=== PATIENT | male | born 1975 | race Caucasian/White ===

== ENCOUNTER 2017-01-29 09:14 | Day surgery (SDC) | payer OTHER ==
[2017-01-29] MEDS ORDERED: ceFAZolin 2 GM/50 ML 50 ML IV ONE (09:36)
[2017-01-29] MEDS ORDERED: ACETAMINOPHEN 1,000 MG/100 ML 100 ML IV ONE (09:37)
[2017-01-29] MEDS ORDERED: LACTATED RINGERS 1,000 ML IV ONE (09:40)
[2017-01-29] MEDS ORDERED: PROPOFOL 200 MG/20 ML VIAL IVP ONE (11:30)
[2017-01-29] MEDS ORDERED: LIDOCAINE-PF 2% 10 ML AMP SUBQ ONE (11:30)
[2017-01-29] MEDS ORDERED: MIDAZOLAM 2 MG/2 ML VIAL IVP ONE (11:30)
[2017-01-29] MEDS ORDERED: fentaNYL 100 MCG/2 ML VIAL IVP ONE (11:30)
[2017-01-29] MEDS ORDERED: DEXAMETHASONE 4 MG/ML VIAL IVP ONE (11:30)
[2017-01-29] MEDS ORDERED: KETOROLAC 30 MG/ML VIAL IVP ONE (11:30)
[2017-01-29] MEDS ORDERED: ONDANSETRON 4 MG/2 ML VIAL IVP ONE (11:30)
[2017-01-29] MEDS ORDERED: BUPIVACAINE 0.25% PF 30 ML VIAL SUBQ ONE ×2 (11:39→11:58)
[2017-01-29 13:08] VITALS: BP 102/65
--- NOTE | 2017-02-01 09:08 | OPERATIVE REPORT ---
DATE OF SURGERY: 01/29/2017 00:00:00 [facility] MEDICAL RECORD#: [id number]. PREOPERATIVE DIAGNOSIS: Right carpal tunnel syndrome. POSTOPERATIVE DIAGNOSIS: Right carpal tunnel syndrome. OPERATIONS PERFORMED: Open right carpal tunnel release. PRIMARY SURGEON: Danielle Butler MD CDL A DRIVER SURGEON: Rober Dodd MD ANESTHESIA PROVIDER: Eddy Gray CRNA CIRCULATING NURSE: Jan Cm RN MEDICAL PROFESSIONALS: Juancarlos Rosario. ANESTHESIA: General via LMA. IV FLUIDS: 1200 mL lactated Ringer's. ESTIMATED BLOOD LOSS: 1 mL. ANTIBIOTICS: Ancef 2 grams IV. TOURNIQUET: To right arm at 200 mmHg for 21 minutes. IMPLANTS: None. SPECIMENS: None. COMPLICATIONS: None. INDICATIONS: This is a 41-year-old male with a history of numbness and tingling in his bilateral hand s that began in 05/2016. He had EMG and nerve conduction study tests done showing mild bilateral medi an nerve lesions at the wrist. Treatment options including risks, benefits, indications, and expectat ions were discussed with the patient. Risks of surgery to include, but not limited to infection, blee ding, damage to neurovascular structures, need for additional surgery, pain, wrist stiffness, deep ve in thrombosis, pulmonary embolism, loss of limb, and loss of life were discussed with the patient. Al l questions were answered, the patient elected to proceed with surgery, and informed consent was obta ined. DESCRIPTION OF PROCEDURE: The patient was met in the preoperative hold area on the morning of surgery , where we confirmed that we had the correct patient, planned to do the correct procedure, and had th e correct extremity which was the right upper extremity identified. Prior to the patient receiving an y medications, the operative extremity was initialed by the surgeon. The patient was then brought [facility] to the operating room in stable condition and placed supine on the operating room table. All bony p rominences were well-padded, and sequential compression devices were placed on the bilateral lower ex tremities. General anesthesia was then induced without complication, and an LMA was placed. The right upper extremity was then prepped and draped in the usual sterile fashion. After final draping, addit ional ChloraPrep was utilized on the operative site; 3 minutes were allowed to elapse to enable the C hloraPrep to dry. We held a surgical time-out, where we confirmed that we had the correct patient, pl anned to do the correct procedure, and had the correct extremity which was the right upper extremity identified. We also confirmed that the patient received preoperative antibiotics, that all necessary gear was in the room and confirmed sterile, and that no members of the operative team had any concern . We began by exsanguinating the right upper extremity and inflating the tourniquet to 200 mmHg. We the n made an incision over the carpal tunnel on the volar wrist. After sharply incising the skin, we uti lized electrocautery to dissect through the subcuticular layer. We identified the palmar fascia and s janes incised this utilizing a new knife blade. We then identified the transverse carpal ligament. W amanda made a small ariela in this utilizing the knife. We then passed a [place] underneath this and then cut down on top of the [place] to open the transverse carpal ligament proximally and distally. Proximally, the very last part of the transverse carpal ligament was cut utilizing tenotomies. We identified the median nerve within the carpal tunnel, which was without gross abnormalities. We then thoroughly irri gated the wound. We then closed the skin utilizing 4-0 nylon in a horizontal mattress fashion. We then injected 10 mL of 0.25% bupivacaine about the incision for postoperative analgesia. The wound was then dressed with sterile Xeroform, plain gauze, and Webril. We deflated the tourniquet after 21 minutes. The patient w as then placed into a volar resting splint. All sponge counts and needle counts were correct at the conclusion of the case. The patient was awake fide from general anesthesia without complication and taken to the PACU in stable condition. POSTOPERATIVE PLAN: The patient will be seen back in the clinic in 10 days, at which time we will rem ove the splint and do a wound check. He will begin range of motion at that time. No soaking his wound for 4 weeks. JOB #: [id number] EXT JOB #:[id number]
== END 2017-01-29 09:15 | disposition home or self-care (01) ==
LOC: SDS 09:14
PROVIDERS: ATTEND Orthopaedic Surgery
PROC: 01N50ZZ Release Median Nerve, Open Approach (ICD-10-PCS; principal; 2017-01-29 10:30)
DX: G56.01 Carpal tunnel syndrome, right upper limb (principal)
CPT/HCPCS: 64721; J0131; J0690; J7120

== ENCOUNTER 2017-04-19 14:15 | Outpatient (CLI) | payer OTHER | END 2017-04-19 14:16 | disposition home or self-care (01) | LOC: SC 14:15 | PROVIDERS: ATTEND Internal Medicine Pulmonary Disease | DX: R20.2 Paresthesia of skin (principal) | CPT/HCPCS: 99203; 99212 ==

== ENCOUNTER 2017-04-27 20:17 | Outpatient (CLI) | payer OTHER | END 2017-04-27 20:18 | disposition home or self-care (01) | LOC: SC 20:17 | PROVIDERS: ATTEND Internal Medicine Pulmonary Disease | DX: G47.33 Obstructive sleep apnea (adult) (pediatric) (principal); G47.61 Periodic limb movement disorder | CPT/HCPCS: 95810 ==

== ENCOUNTER 2017-05-05 10:27 | Outpatient (CLI) | payer OTHER | END 2017-05-05 10:28 | disposition home or self-care (01) | LOC: SC 10:27 | PROVIDERS: ATTEND Nurse Practitioner Family | DX: G47.33 Obstructive sleep apnea (adult) (pediatric) (principal); G47.61 Periodic limb movement disorder | CPT/HCPCS: 99212; 99214 ==

== ENCOUNTER 2017-05-07 06:03 | Day surgery (SDC) | payer OTHER ==
[2017-05-07] MEDS ORDERED: LACTATED RINGERS 1,000 ML IV ONE ×3 (06:38→08:46)
[2017-05-07] MEDS ORDERED: ACETAMINOPHEN 1,000 MG/100 ML 100 ML IV ONE (06:39)
[2017-05-07] MEDS ORDERED: ceFAZolin 2 GM/50 ML 2 GM/50 ML BAG IV ONE (06:39)
[2017-05-07] MEDS ORDERED: fentaNYL 100 MCG/2 ML VIAL IVP ONE (07:30)
[2017-05-07] MEDS ORDERED: LIDOCAINE-MPF 2% 5 ML VIAL IM ONE (07:30)
[2017-05-07] MEDS ORDERED: PROPOFOL 200 MG/20 ML VIAL IVP ONE (07:30)
[2017-05-07] MEDS ORDERED: DEXAMETHASONE 4 MG/ML VIAL IVP ONE (07:30)
[2017-05-07] MEDS ORDERED: MIDAZOLAM 2 MG/2 ML VIAL IVP ONE (07:30)
[2017-05-07] MEDS ORDERED: ONDANSETRON 4 MG/2 ML VIAL IVP ONE (07:30)
[2017-05-07] MEDS ORDERED: BUPIVACAINE 0.25% PF 30 ML VIAL SUBQ ONE ×2 (07:38→08:18)
[2017-05-07 09:08] VITALS: BP 117/76
--- NOTE | 2017-05-10 13:21 | OPERATIVE REPORT ---
DATE: 05/05/2017 ID #: [id number] PREOPERATIVE DIAGNOSIS: Left carpal tunnel syndrome. POSTOPERATIVE DIAGNOSIS: Left carpal tunnel syndrome. OPERATION PERFORMED: Left open carpal tunnel release. PRIMARY SURGEON: Danielle Butler MD ANESTHESIA PROVIDER: Lizeth Nelson CRNA CIRCULATING NURSE 1. Vilma Tucker RN. 2. Gail York. BROADCAST MAINTENANCE ENGINEER: Tianna Ventura RN, BSN. ANESTHESIA: General via LMA. IV FLUIDS: 800 mL lactated Ringer's. ESTIMATED BLOOD LOSS: 1 mL ANTIBIOTICS: Ancef 2 g IV. TOURNIQUET: Left arm at 200 mmHg for 28 minutes. SPECIMENS: None. COMPLICATIONS: None. IMPLANTS: None. INDICATIONS: This is a 42-year-old right-hand dominant male who has had numbness and tingling in his left hand since May 2016. The risks, benefits, indications, expectations, and treatment options were discussed with the patient to include the risks of surgery including risk of infection, bleeding, damage to neurovascular structures to include the median nerve, damage to flexor tendons of the hand, need for additional surgery, pain, wrist stiffness, deep vein thrombosis, pulmonary embolus, loss of limb, and loss of life. All questions were answered, the patient elected to proceed with surgery, and informed consent was obtained. DESCRIPTION OF PROCEDURE: The patient was met in the preoperative hold area on the day of surgery, where we confirmed that we had the correct patient, planned to do the correct procedure, and had the correct extremity, which was the left upper extremity identified. Prior to the patient receiving any medications, the operative extremity was initialed by the surgeon. The patient was then brought back to the operating room in stable condition and placed supine on the operating room table. All bony prominences were well padded, and sequential compressive devices were placed on the bilateral lower extremities. General anesthesia was induced without complication, and an LMA was placed. The left upper extremity was then prepped and draped in the usual sterile fashion. After a final draping, additional ChloraPrep was utilized on the operative site. Three minutes were allowed to elapse to enable the ChloraPrep to dry. We held a surgical timeout, where we confirmed that we had the correct patient, planned to do the correct procedure, and had the correct extremity, which was left upper extremity identified. We also confirmed that all necessary gear was in the room and confirmed sterile, and that patient received preoperative antibiotics, and that no members of the operative team had any concerns. I began by exsanguinating the left upper extremity and inflating the tourniquet to 200 mmHg. We then made an incision over the volar aspect of the carpal tunnel in line with the radial border over the ring finger, though I altered the incision slightly to follow the natural hand crease. After sharply incising the skin, we then utilized bipolar cautery to dissect through the subcuticular layer. I then identified the palmar fascia and sharply incised this. I then identified a branch of the median nerve that had taken off prior to the transverse carpal ligament. We thus retracted this and continued our dissection of the transverse carpal ligament, which we sharply incised. Once we were fully through the transverse carpal ligament, I placed a [place] underneath the transverse carpal ligament and cut down onto this. The transverse carpal ligament was released fully proximally and distally, and I insured that a [place] would easily pass on both ends. The wound was then thoroughly irrigated. The skin was closed utilizing 3-0 nylon in a horizontal mattress fashion; 5 mL of 0.25% Marcaine was then injected about the incision for postoperative analgesia. The wound was then dressed with sterile Xeroform, plain gauze, and Webril. The patient was then placed into a volar resting splint. All sponge counts and needle counts were correct at the conclusion of the case. The patient was awakened from general anesthesia without complication and taken to the PACU in stable condition. POSTOPERATIVE PLAN: The patient will remain in his splint until he is seen back for his first postoperative visit in 10-14 days, at which time we will remove the sutures and begin him with early therapy. TD: 05/08/2017 16:49 YESSICA
== END 2017-05-07 06:04 | disposition home or self-care (01) ==
LOC: SDS 06:03
PROVIDERS: ATTEND Orthopaedic Surgery
PROC: 01N50ZZ Release Median Nerve, Open Approach (ICD-10-PCS; principal; 2017-05-07 07:30)
DX: G56.02 Carpal tunnel syndrome, left upper limb (principal)
CPT/HCPCS: 64721; J0131; J0690; J7120

== ENCOUNTER 2017-06-15 09:08 | Outpatient (CLI) | payer OTHER | END 2017-06-15 09:09 | disposition home or self-care (01) | LOC: SC 09:08 | PROVIDERS: ATTEND Nurse Practitioner Family | DX: G47.33 Obstructive sleep apnea (adult) (pediatric) (principal) | CPT/HCPCS: 99212; 99214 ==

== ENCOUNTER 2017-07-08 11:13 | Outpatient (CLI) | payer OTHER | END 2017-07-08 11:14 | disposition home or self-care (01) | LOC: SC 11:13 | PROVIDERS: ATTEND Nurse Practitioner Family | DX: G47.33 Obstructive sleep apnea (adult) (pediatric) (principal) | CPT/HCPCS: 99212; 99214 ==

== ENCOUNTER 2017-07-13 22:23 | Outpatient (CLI) | payer OTHER | END 2017-07-13 22:24 | disposition home or self-care (01) | LOC: SC 22:23 | PROVIDERS: ATTEND Internal Medicine Pulmonary Disease | DX: G47.33 Obstructive sleep apnea (adult) (pediatric) (principal); G47.61 Periodic limb movement disorder | CPT/HCPCS: 95811 ==

== ENCOUNTER 2017-08-05 09:00 | Outpatient (CLI) | payer OTHER | END 2017-08-05 09:01 | disposition home or self-care (01) | LOC: SC 09:00 | PROVIDERS: ATTEND Nurse Practitioner Family | DX: G47.33 Obstructive sleep apnea (adult) (pediatric) (principal) | CPT/HCPCS: 99212; 99214 ==

== ENCOUNTER 2017-11-22 10:00 | Outpatient (CLI) | payer OTHER | END 2017-11-22 10:01 | disposition home or self-care (01) | LOC: SC 10:00 | PROVIDERS: ATTEND Nurse Practitioner Family | DX: G47.33 Obstructive sleep apnea (adult) (pediatric) (principal) | CPT/HCPCS: 99212; 99214 ==

== ENCOUNTER 2018-06-14 10:10 | Outpatient (CLI) | payer OTHER | END 2018-06-14 10:11 | disposition home or self-care (01) | LOC: SC 10:10 | PROVIDERS: ATTEND Nurse Practitioner Family | DX: G47.33 Obstructive sleep apnea (adult) (pediatric) (principal) | CPT/HCPCS: 99212; 99214 ==

== ENCOUNTER 2019-05-22 13:09 | Outpatient (CLI) | payer OTHER ==
[2019-05-22 14:08] VITALS: BP 104/68
--- NOTE | 2019-05-22 14:08 | SLEEP CARE CONSULTATION ---
Information from patient questionnaire entered by Lizeth Reid. I have reviewed and concur with the information entered by Lizeth Reid. This document represents the service I personally performed and the decisions made by me, Shannan Acevedo, RN, MSN, [employer]. History of Present Illness Previous diagnosis: Mild (t), Obstructive Sleep Apnea-Hypopnea Syndrome AHI: 8.8 Reason for follow up: annual (last seen 2019) Equipment type: CPAP Equipment obtained from: [employer] (transferred by [facility] due to change in coverage) Mask style: Full face ([place]) Mask brand: Respironics Backup mask available: Yes Last cushion change: a month ago CPAP Compliance Data - Data Reviewed with Patient Average duration of nightly device use: 5.9 Compliance rate %: 89 (180 days) Current pressure setting (cmH2O): 13 Humidity settin Average residual AHI: 1.9 Average large leak: 5.1 liters per minute Subjective Missed days of use due to: reports: illness Patient concerns: reports: nasal congestion (chronic nasal congestion but does not interfer with CPAp), dry mouth, nose, throat (occasionally). denies: aerophagia, mask discomfort, air blowing in eyes, mask leak noise, condensation in mask/hose, epistaxis Observed to snore while using device: No Current pressure setting perceived as: comfortable On therapy, patient: reports: sleeping better, awakening more refreshed, being more awake and alert during the day, more rested overall. denies: drowsiness while driving Initial [place] Sleepiness Scale score: 6 Current [place] Sleepiness Scale score: 2 Allergies and Home Medications Known drug allergies: No Home medication list reviewed: Yes Allergy and home medication list: [place] as needed. Review of Systems Review of systems same as previous: Yes Physical Exam Blood Pressure: 104/68 Cuff size: long Heart Rate: 72 O2 Saturation: 99 Height: 5 ft 8 in Weight: 192 lb (with boots ) Body Mass Index: 29.2 BMI Classification: Overweight Impression and Plan 1. Obstructive Sleep Apnea-Hypopnea Syndrome, mild , with good treatment compliance and good apnea control. On CPAP therapy, the patient has better sleep quality and is more rested overall. Since he is planning on losing some weight. I discussed how significant weight loss can reduce apnea severity and CPAP pressure requirements. Symptoms to report discussed to reduce CPAP pressure. Patient's apnea severity and rationale for treatment to reduce apnea, improve sleep quality and reduce cardiovascular and cerebrovascular events was reviewed. Since his apnea is primarily supine, if unable to use CPAP, he is to avoid supine sleep. * Continue CPAP pressure at 13 [id number] CPAP pressure to cmH2O * Notify me if snoring with mask or feeling that the pressure is too much or too little * Attempt to lose weight * Call this office if any problems using CPAP * Return for follow up in 1year , or sooner if concerns arise Time Spent with Patient (minutes): 20 minutes I spent 100% of this visit face to face with the patient with greater than 50% of this was spent time counseling the patient and coordination of care.
== END 2019-05-22 13:10 | disposition home or self-care (01) ==
LOC: SC 13:09
PROVIDERS: ATTEND Nurse Practitioner Family
DX: G47.33 Obstructive sleep apnea (adult) (pediatric) (principal)
CPT/HCPCS: 99212; 99213

== ENCOUNTER 2020-02-15 12:38 | Outpatient (CLI) | payer OTHER ==
--- NOTE | 2020-02-15 14:17 | MRI Report ---
PROCEDURE: Lumbar Spine W/O INDICATIONS: LOW BACK PAIN TECHNIQUE: Noncontrast sagittal T1 spin echo and T2 fast echo, sagittal STIR, axial T1 and T2 fast spin echo thr ough the lumbar spine. In cases with scoliosis, additional coronal T2 fast spin echo may be performe d. COMPARISON: None. FINDINGS: Image quality: Excellent. Alignment and Curvature: There is normal bony alignment. In the absence of plain films for compariso n, it is assumed that there are 5 nonrib-bearing lumbar vertebral bodies, and that axial imaging was obtained from L1/L2 through L5/S1. Bone Marrow: Marrow is of normal overall signal. No acute vertebral body compression fractures. Spinal Cord: Conus medullaris terminates at the L1 level. Visualized cord demonstrates normal signa l and size. Paraspinous Soft Tissues: No paravertebral masses. L1-L2: No canal stenosis or foraminal stenosis. L2-L3: No canal stenosis or foraminal stenosis. L3-L4: Mild facet hypertrophy. No canal stenosis or foraminal stenosis. L4-L5: Mild facet hypertrophy. No canal stenosis or foraminal stenosis. L5-S1: There is a moderate-sized focal right posterior disc protrusion which significantly impinges on the right S1 nerve root in the right lateral recess. Disc protrusion measures 1.4 x 1.2 x 0.9 cm. Reference image 8/701 (axial T2) and image 8/301 (T2 sagittal sequence). Mild facet hypertrophy. Mil d bilateral foraminal stenosis. IMPRESSION: 1. A focal right posterior disc protrusion significantly impinges on the right S1 nerve root in the r ight lateral recess. 2. Mild multilevel facet hypertrophy. Reviewed by: Sandeep Lin MD on 02/15/2020 2:16 PM PDT Approved by: Sandeep Lin MD on 02/15/2020 2:16 PM PDT Station ID: [id number]
== END 2020-02-15 12:39 | disposition home or self-care (01) ==
LOC: DI 12:38
PROVIDERS: ATTEND Nurse Practitioner Family
DX: M51.27 Other intervertebral disc displacement, lumbosacral region (principal); G54.9 Nerve root and plexus disorder, unspecified
CPT/HCPCS: 72148

== ENCOUNTER 2020-05-15 09:17 | Outpatient (CLI) | payer OTHER ==
--- NOTE | 2020-05-15 13:59 | XRAY Report ---
PROCEDURE: Lumbar Spine w/Flex/Ext INDICATIONS: L5-S1 LAMINECTOMY TECHNIQUE: 5 views of the lumbar spine acquired. COMPARISON: MRI lumbar spine 02/15/2020 FINDINGS: Bones: 5 [id number] vertebrae are present. There is trace retrolisthesis of L1 on L2, L2 on L3 , L3 on L4, L4-L5 and L5 on S1. Moderate bilateral foraminal narrowing at L5-S1. No vertebral body co mpression fractures. No suspicious bony lesions. Soft tissues: Overlying bowel gas pattern is normal. No suspicious soft tissue calcifications. Flexion/extension: There is normal range of motion, with preserved normal alignment. No dynamic ins tability. IMPRESSION: Degenerative changes most notable at L5-S1. Reviewed by: Lucia Sandy MD on 05/15/2020 1:57 PM PST Approved by: Lucia Sandy MD on 05/15/2020 1:57 PM PST Station ID: [id number]
== END 2020-05-15 09:18 | disposition home or self-care (01) ==
LOC: DI 09:17
PROVIDERS: ATTEND Nurse Practitioner Adult Health
DX: M43.16 Spondylolisthesis, lumbar region (principal); M43.17 Spondylolisthesis, lumbosacral region; M47.817 Spondylosis without myelopathy or radiculopathy, lumbosacral region

== ENCOUNTER 2020-06-05 16:17 | Outpatient (CLI) | payer OTHER ==
--- NOTE | 2020-06-05 15:05 | SLEEP CARE CONSULTATION ---
Information from patient questionnaire entered by Lizeth Reid. I have reviewed and concur with the information entered by Lizeth Reid. This document represents the service I personally performed and the decisions made by me, Shannan Acevedo, RN, MSN, LIBRARY CIRCULATION CLERK. History of Present Illness Service Date and Time: 06/05/2020 1430 Previous diagnosis: Mild (t), Obstructive Sleep Apnea-Hypopnea Syndrome AHI: 8.8 (in 2017) Reason for follow up: annual (last seen 04/2019) Equipment type: CPAP Equipment obtained from: [employer] (getting supplies as needed) Mask style: Full face Mask brand: Respironics ([place]adira View) Backup mask available: Yes (old mask) Last cushion change: last month Prior sleep studies: Yes Year and Where: 2017 - [facility] Sleep CPAP Compliance Data - Data Reviewed with Patient Average duration of nightly device use: 5 hr 44 min Compliance rate %: 93 (180 days) Current pressure setting (cmH2O): 13 Humidity settin Average residual AHI: 1.8 Subjective Patient concerns: reports: nasal congestion (chronic nasal congestion - for life and no concerns in treatment). denies: aerophagia, mask discomfort, air blowing in eyes, mask leak noise, condensation in mask/hose, dry mouth, nose, throat, epistaxis Observed to snore while using device: No Current pressure setting perceived as: comfortable On therapy, patient: reports: sleeping better, awakening more refreshed, being more awake and alert during the day, more rested overall. denies: drowsiness while driving Initial [place] Sleepiness Scale score: 6 (in 2017) Current [place] Sleepiness Scale score: 2 Allergies and Home Medications Known drug allergies: No Home medication list reviewed: No (no medications ) Review of Systems Review of systems same as previous: No (L5 S1 laminectomy and disectomy ) Physical Exam Height: 5 ft 8 in Weight: 190 lb (lost 5 pounds ) Body Mass Index: 28.8 BMI Classification: Overweight Impression and Plan 1. Obstructive Sleep Apnea-Hypopnea Syndrome, mild, with good treatment compliance and good apnea control. On CPAP therapy, the patient has better sleep quality and is more rested overall. He intermittently will keep mask off after using the bathroom. He was advised to put mask back on to reduce apnea risk as there is increased risk of apnea in later REM sleep. He lost weight and has plans to lose 10 pounds more . I reviewed the benefit of weight loss to his apnea and CPAP pressure requirements. I discussed symptoms to report to adjust pressure if needed as he loses more weight. Patient's apnea severity and rationale for treatment to reduce apnea, improve sleep quality and reduce cardiovascular and cerebrovascular events was reviewed. Since patient has more severe apnea in supine position, patient advised to avoid supine sleep with pillow positioning if unable to use CPAP while ill or if without electricity to reduce apnea risk. * Continue CPAP pressure at 13 cmH2O * Notify me if snoring with mask or feeling that the pressure is too much or too little * Continue to lose weight * Call this office if any problems using CPAP * Return for follow up in 1 year , or sooner if concerns arise Visit Type: Telehealth Video Video Type: Doximity Patient Location: Home Location of Provider: Home Patient agrees and consents to this telehealth visit type: Yes Patient agrees to have their insurance billed: Yes Time Spent with Patient (minutes): 15 minutes with patient/ 5 minutes documentation Provider Statement: I spent 100% of the Telehealth Video Call with the patient with greater than 50% spent counseling the patient and coordination of care.
== END 2020-06-05 16:18 | disposition home or self-care (01) ==
LOC: SC 16:17
PROVIDERS: ATTEND Nurse Practitioner Family
DX: G47.33 Obstructive sleep apnea (adult) (pediatric) (principal); E66.3 Overweight; Z68.28 Body mass index [BMI] 28.0-28.9, adult

== ENCOUNTER 2020-10-07 07:38 | Outpatient (CLI) | payer OTHER ==
--- NOTE | 2020-10-07 09:13 | MRI Report ---
PROCEDURE: Lumbar Spine W/O INDICATIONS: Low back pain and radiculopathy TECHNIQUE: Noncontrast sagittal T1 spin echo and T2 fast echo, sagittal STIR, axial T1 and T2 fast spin echo thr ough the lumbar spine. In cases with scoliosis, additional coronal T2 fast spin echo may be performe d. COMPARISON: 02/15/2020 lumbar spine MRI. FINDINGS: Image quality: Excellent. Alignment and Curvature: There is normal bony alignment. Bone Marrow: Marrow is of normal overall signal. No acute vertebral body compression fractures. Spinal Cord: Conus medullaris terminates at the normal level. Visualized cord demonstrates normal s ignal and size. Region of Soft Tissues: Mild scarring and edematous changes in the right paraspinous soft tissues at the level of the right L5-S1 laminectomy. T12-L1: No spinal canal or neural foraminal stenosis. L1-L2: No spinal canal or neural foraminal stenosis. L2-L3: No spinal canal or neural foraminal stenosis. L3-L4: No spinal canal or neural foraminal stenosis. L4-L5: No spinal canal or neural foraminal stenosis. L5-S1: Post surgical changes of right hemilaminotomy for microdiscectomy. The previously seen disc extrusion has been resected. There is a recurrent disc protrusion flattening the ventral thecal sac a nd displacing the bilateral descending S1 nerve roots. In particular the right S1 nerve root appears mildly enlarged with increased T2 signal (series 701 image 4). Foraminal components of the disc bulge and neural foraminal height loss continue to mild bilateral neural foraminal stenosis in conjunction with facet hypertrophy. IMPRESSION: Postsurgical changes of right L5-S1 hemilaminectomy for microdiscectomy. Recurrent disc protrusion at L5-S1 displacing the descending S1 nerve roots, right greater than left with enlargement and increas ed T2 signal in the right S1 nerve root representing suspected impingement. No significant degenerative changes at the remaining levels. Reviewed by: Sonny Marcos MD on 10/07/2020 9:11 AM PDT Approved by: Sonny Marcos MD on 10/07/2020 9:11 AM PDT Station ID: [id number]
== END 2020-10-07 07:39 | disposition home or self-care (01) ==
LOC: DI 07:38
PROVIDERS: ATTEND Neurological Surgery
DX: M47.817 Spondylosis without myelopathy or radiculopathy, lumbosacral region (principal); M51.37 Other intervertebral disc degeneration, lumbosacral region; M48.07 Spinal stenosis, lumbosacral region; M51.27 Other intervertebral disc displacement, lumbosacral region

== ENCOUNTER 2022-01-19 08:00 | Outpatient (CLI) | payer OTHER ==
--- NOTE | 2022-01-20 10:03 | XRAY Report ---
PROCEDURE: Shoulder 3 View BILAT INDICATIONS: Right shoulder pain TECHNIQUE: 4 views of the bilateral shoulders were acquired. COMPARISON: None. FINDINGS: Moderate acromioclavicular degenerative change. No significant degenerative changes of the glenohumer al joints. No fracture. No suspicious lytic or blastic osseous lesion. IMPRESSION: Bilateral moderate acromioclavicular degenerative change, right greater than left. Reviewed by: Sonny Marcos MD on 01/20/2022 10:02 AM PDT Approved by: Sonny Marcos MD on 01/20/2022 10:02 AM PDT Station ID: [id number]
== END 2022-01-19 23:59 | disposition home or self-care (01) ==
LOC: DI.WOS 08:00
PROVIDERS: ATTEND Physician Assistant Surgical
DX: M19.012 Primary osteoarthritis, left shoulder (principal); M19.011 Primary osteoarthritis, right shoulder